=== PATIENT | female | born 2000 | race Caucasian/White ===

== ENCOUNTER 2019-09-23 01:13 | Emergency (ER) | payer BC, SELFPAY ==
--- NOTE | ~2019-09-23 | XR_ITS ---
EXAMINATION: XR hip RT 2V w AP pelvis INDICATION: Right hip pain TECHNIQUE: AP view of the pelvis and three views of the right hip are obtained. COMPARISON: None available FINDINGS: Bone alignment is normal. There is no fracture. The visualized soft tissues are normal. IMPRESSION: 1. No acute osseous abnormality. Reviewed, dictated and finalized at location [facility]
[2019-09-23 01:11] VITALS: BP 146/81; PULSE 82; RESP 22; TEMP 36.9; O2SAT 100
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
[2019-09-23 02:18] VITALS: BP 138/78; PULSE 86; RESP 18; O2SAT 100
--- NOTE | 2019-09-23 02:24 | PC.NURSE ---
patient consented to dui kit at this time. blood and urine collected and given to [facility] pd
[2019-09-23 03:53] VITALS: BP 136/89; PULSE 84; RESP 19; TEMP 36.9; O2SAT 100
== END 2019-09-23 03:57 | disposition home or self-care (01) ==
LOC: ANHED 03:10
PROVIDERS: Emergency Provider Emergency Medicine
DX: S90.01XA Contusion of right ankle, initial encounter (principal); S50.811A Abrasion of right forearm, initial encounter; V48.5XXA Car driver injured in noncollision transport accident in traffic accident, initial encounter; Y92.415 Exit ramp or entrance ramp of street or highway as the place of occurrence of the external cause
CPT/HCPCS: 73502; 73521; 99283